=== PATIENT | male | born 1935 | race Caucasian/White ===

== ENCOUNTER 2016-06-28 00:48 | Emergency (ER) | payer MEDICARE ==
[2016-06-28 01:03] VITALS: RESP 16
[2016-06-28 01:59] VITALS: BP 158/69; PULSE 60; TEMP 97.8; O2SAT 98
--- NOTE | 2016-06-28 02:06 | C.PDOC ---
History Of Present Illness <Ruth Abebe - Last Filed: 06/28/16 06:09> <Adela Ventura - Last Filed: 07/15/16 09:30> 80 year old patient, with a past medical history of hypertension, presents to the ED complaining of feeling warm and flushed due to a possible high blood pressure. Patient check his blood pressure with an at-home monitor that reported a high reading. Patient was concerned and wanted further evaluation. Patient denies headache, shortness of breath, chest pain, palpitations, numbness , weakness, nausea, or vomiting. Patient feels better upon arrival at the ED. He came with a family friend. (Ruth Abebe) History Per: Patient History/Exam Limitations: no limitations Onset/Duration Of Symptoms: Mins (just prior to arrival) Current Symptoms Are (Timing): Still Present Associated Symptoms: Other Severity: None Pain Scale Rating Of: 0 <Ruth Abebe - Last Filed: 06/28/16 06:09> <Adela Ventura - Last Filed: 07/15/16 09:30> Time Seen by Provider: 06/28/16 01:40 Chief Complaint (Nursing): High Blood Pressure Past Medical History Reviewed: Historical Data, Nursing Documentation, Vital Signs - Medical History PMH: HTN Family History: States: Unknown Family Hx - Social History Hx Alcohol Use: No Hx Substance Use: No - Immunization History Hx Tetanus Toxoid Vaccination: No Hx Influenza Vaccination: No Hx Pneumococcal Vaccination: No <Ruth Abebe - Last Filed: 06/28/16 06:09> Review Of Systems Except As Marked, All Systems Reviewed And Found Negative. Cardiovascular: Negative for: Chest Pain, Palpitations Respiratory: Negative for: Shortness of Breath Gastrointestinal: Negative for: Nausea, Vomiting Neurological: Negative for: Weakness, Numbness, Headache <Ruth Abebe - Last Filed: 06/28/16 06:09> Physical Exam - Physical Exam Appears: Well, Non-toxic, No Acute Distress Skin: Warm, Dry Head: Atraumatic, Normacephalic Neck: Normal ROM, Supple Chest: Symmetrical Cardiovascular: Rhythm Regular Respiratory: No Accessory Muscle Use Back: Normal Inspection, No CVA Tenderness Extremity: Normal ROM Neurological/Psych: Oriented x3 Gait: Steady <Ruth Abebe - Last Filed: 06/28/16 06:09> ED Course And Treatment O2 Sat by Pulse Oximetry: 98 (RA) Pulse Ox Interpretation: Normal Progress Note: Patient is asymptomatic and appears well. Patient is resting comfortably, and is in no acute distress. Patient was instructed to follow up with PMD in 1-2 days for further evaluation. Return if symptoms worsen. <Ruth Abebe - Last Filed: 06/28/16 06:09> Disposition Counseled Patient/Family Regarding: Diagnosis, Need For Followup - Disposition Disposition Time: 02:04 <Ruth Abebe - Last Filed: 06/28/16 06:09> <Adela Ventura - Last Filed: 07/15/16 09:30> - Disposition Referrals: Angelo Voss MD [Staff Provider] - Disposition: HOME/ ROUTINE Condition: STABLE Additional Instructions: Please follow up with PMD Take meds as directed Return to ER if worse Forms: Gen Discharge Inst Citizen Of [place] Print Language: CROATIAN - Clinical Impression Clinical Impression: Encounter for medical assessment - PA / CLINICAL MARKETING MANAGER / Resident Statement / has reviewed & agrees with the documentation as recorded. - Scribe Statement The provider has reviewed the documentation as recorded by the Scribe <Ruth Abebe - Last Filed: 06/28/16 06:09> - PA / CLINICAL MARKETING MANAGER / Resident Statement YVES has reviewed & agrees with the documentation as recorded. <Adela Ventura - Last Filed: 07/15/16 09:30> - Scribe Statement Alina Gmable All medical record entries made by the Scribe were at my direction and personally dictated by me. I have reviewed the chart and agree that the record accurately reflects my personal performance of the history, physical exam, medical decision making, and the department course for this patient. I have also personally directed, reviewed, and agree with the discharge instructions and disposition. (Ruth Abebe)
== END 2016-06-28 02:13 | disposition home or self-care (01) ==
LOC: C.ER 00:48
DX: Z00.00 Encounter for general adult medical examination without abnormal findings (principal)

== ENCOUNTER 2017-04-07 04:51 | Observation (INO) | payer MEDICARE ==
[2017-04-07 05:51] LABS: BASO % 0.5 % (0.0-2.0); EOS # 0.1 K/uL (0.0-0.7); EOS % 1.6 % (0.0-4.0); HEMOGLOBIN 14.7 g/dL (12.0-18.0); LYMPH # 1.6 K/uL (1.0-4.3); LYMPH % 24.4 % (20.0-40.0); MEAN CELL VOLUME 83.3 fL (80.0-94.0); MEAN CORPUSCULAR HEMOGLOBIN 28.7 pg (27.0-31.0); MEAN CORPUSCULAR HGB CONC 34.4 g/dL (33.0-37.0); MEAN PLATELET VOLUME 8.6 fL (7.2-11.7); MONO # 0.5 K/uL (0.0-0.8); MONO % 8.2 % (0.0-10.0); NEUT # 4.2 K/uL (1.8-7.0); NEUT % 65.3 % (50.0-75.0); RBC 5.14 Mil/uL (4.40-5.90); RED CELL DISTRIBUTION WIDTH 14.6 % (11.5-14.5); WHITE BLOOD COUNT 6.5 K/uL (4.8-10.8)
[2017-04-07 06:12] LABS: BLOOD UREA NITROGEN 18 mg/dL (9-20); GFR AFRICAN-AMERICAN > 60; GFR NON-AFRICAN AMERICAN > 60
[2017-04-07 06:13] LABS: ALB/GLOB RATIO 1.3 (1.0-2.1); ALBUMIN 4.1 g/dL (3.5-5.0); ALT/SGPT 40 U/L (21-72); AST/SGOT 29 U/L (17-59); CALCIUM 8.7 mg/dl (8.6-10.4)
--- NOTE | 2017-04-07 06:19 | C.PDOC ---
History Of Present Illness <Mikael Moreno - Last Filed: 04/07/17 06:56> <Rubi Wright - Last Filed: 04/07/17 11:10> 81 year old male with Hx HTN comes in the ED c/o high blood pressure and palpitations. Patient reports he checked his BP at home and it was 200 systolic , improving in the ED. Patient denies any pain. (TiffanieMikael) History Per: Patient History/Exam Limitations: no limitations Onset/Duration Of Symptoms: Hrs Current Symptoms Are (Timing): Still Present Associated Symptoms: Chest Pain Quality Of Symptoms: Rapid Heart Rate Exacerbating Factor(s): Pos: None Recent travel outside of the [place]: No Additional History Per: Patient <Mikael Moreno - Last Filed: 04/07/17 06:56> <Rubi Wright - Last Filed: 04/07/17 11:10> Time Seen by Provider: 04/07/17 04:55 Chief Complaint (Nursing): High Blood Pressure Past Medical History Reviewed: Historical Data, Nursing Documentation, Vital Signs - Medical History PMH: HTN Surgical History: No Surg Hx Family History: States: Unknown Family Hx - Social History Hx Alcohol Use: No Hx Substance Use: No - Immunization History Hx Tetanus Toxoid Vaccination: No Hx Influenza Vaccination: No Hx Pneumococcal Vaccination: No <Mikael Moreno - Last Filed: 04/07/17 06:56> Vital Signs: Last Vital Signs Temp 97.7 F 04/07/17 10:24 Pulse 70 04/07/17 10:24 Resp 14 04/07/17 10:24 BP 146/75 04/07/17 10:24 Pulse Ox 99 04/07/17 10:24 Review Of Systems Except As Marked, All Systems Reviewed And Found Negative. Cardiovascular: Positive for: Chest Pain, Palpitations <Mikael Moreno - Last Filed: 04/07/17 06:56> Physical Exam - Physical Exam Appears: Non-toxic, Other (mild anxious) Skin: Normal Color, Warm, Dry Head: Atraumatic, Normacephalic Eye(s): bilateral: Normal Inspection Nose: No Discharge, No Deformity Oral Mucosa: Moist Neck: Normal ROM, Supple Chest: Symmetrical Cardiovascular: Rhythm Regular, No Murmur Respiratory: Normal Breath Sounds, No Rales, No Rhonchi, No Wheezing Gastrointestinal/Abdominal: Soft, No Tenderness, No Guarding, No Rebound Extremity: Normal ROM, No Pedal Edema, No Calf Tenderness, No Deformity, No Swelling Neurological/Psych: Oriented x3, Normal Speech, Normal Cognition Gait: Steady <Rosa Morenoil - Last Filed: 04/07/17 06:56> ED Course And Treatment - Laboratory Results Result Diagrams: 04/07/17 05:48 04/07/17 05:48 O2 Sat by Pulse Oximetry: 100 (On RA) Pulse Ox Interpretation: Normal <Mikael Moreno - Last Filed: 04/07/17 06:56> - Laboratory Results Result Diagrams: 04/07/17 05:48 04/07/17 05:48 Interpretation Of Abnormal: INCR VALUE COMPARED TO INITIAL TROPONIN Reevaluation Time: 11:07 Reassessment Condition: Improved (NO RECUR PALP. CP. ADVISED NEED FOR ADMISSION DUE TO 2ND TROP, PT AGREES W PLAN) - Physician Consult Information Time Consulting Physician Contacted: 11:07 Physician Contacted: Angelo Voss Outcome Of Conversation: AWARE OF ER FINDINGS WILL AMDIT <Rubi Wright - Last Filed: 04/07/17 11:10> Medical Decision Making <SamuelRosa garciail - Last Filed: 04/07/17 06:56> <KyleRubi - Last Filed: 04/07/17 11:10> Medical Decision Making: Impression : chest pain, palpitations - r/o metabolic, cardiac etology Plan: * EKG * Labs scarbosa criteria neg, discussed with dr orta - not code heart candidate as pt cp free. discussed with dr voss. no previous ekg avail. requests outpt f/u on monday. (Mikael Moreno) Disposition <Mikael Moreno - Last Filed: 04/07/17 06:56> Counseled Patient/Family Regarding: Studies Performed, Diagnosis, Need For Followup - Disposition Disposition Time: 11:08 <KyleRubi - Last Filed: 04/07/17 11:10> - Disposition Disposition: HOSPITALIZED Condition: STABLE Forms: [facility] (Latvian) - Clinical Impression Clinical Impression: Palpitation, Elevated troponin - Scribe Statement The provider has reviewed the documentation as recorded by the Scribe <Mikael Moreno - Last Filed: 04/07/17 06:56> <Rubi Wright - Last Filed: 04/07/17 11:10> - Scribe Statement Aguilar Tomas All medical record entries made by the Scribe were at my direction and personally dictated by me. I have reviewed the chart and agree that the record accurately reflects my personal performance of the history, physical exam, medical decision making, and the department course for this patient. I have also personally directed, reviewed, and agree with the discharge instructions and disposition. (Mikael Moreno) Decision To Admit <Mikael Moreno - Last Filed: 04/07/17 06:56> - Pt Status Changed To: Hospital Disposition Of: Observation - . Bed Request Type: Telemetry Admitting Physician: Angelo Voss <Rubi Wright - Last Filed: 04/07/17 11:10> - . Patient Diagnosis: Palpitation, Elevated troponin
[2017-04-07 06:27] LABS: PROTHROMBIN TIME 11.4 SECONDS (9.7-12.2)
--- NOTE | 2017-04-07 13:12 | CP.PCM.HP ---
History of Present Illness - History of Present Illness History of Present Illness: cc: palpitations HPI: Mr. Warren is an 81-year-old male, , who presented to the ER meaning of palpitations. Past medical history consists of hyperlipidemia and hypertension. He did recount to me that when he was on vacation at his home country a [place] or two ago he was hospitalized when he became very upset at the treatment of his brother who is disabled. He did not know why he was hospitalized but was told that he was "out of it " for at least two days. Patient did not bring any records from this hospitalization abroad. I'm admitting him today under observation because of the upward trend of his troponins which, though not indicative of ischemia at the moment may be a harbinger of things to come. Present on Admission - Present on Admission Any Indicators Present on Admission: No History of DVT/PE: No History of Uncontrolled Diabetes: No Urinary Catheter: No Decubitus Ulcer Present: No Decubitus Ulcer Location: none Review of Systems - Review of Systems Systems not reviewed;Unavailable: Other (palpitations, high blood pressure on arrival) Past Patient History - Infectious Disease Hx of Infectious Diseases: None - Past Medical History & Family History Past Medical History?: Yes Past Family History: Reviewed and not pertinent - Past Social History Smoking Status: Never Smoked Chewing Tobacco Use: No Cigar Use: No - CARDIAC Hx Hypertension: Yes - PSYCHIATRIC Hx Substance Use: No - SURGICAL HISTORY Hx Surgeries: No - ANESTHESIA Hx Anesthesia: No Meds Allergies/Adverse Reactions: Allergies Allergy/AdvReac Type Severity Reaction Status Date / Time No Known Allergies Allergy Verified 06/28/16 00:57 Physical Exam - Constitutional Appears: No Acute Distress - Head Exam Head Exam: NORMAL INSPECTION - Eye Exam Eye Exam: Normal appearance Pupil Exam: NORMAL ACCOMODATION - ENT Exam ENT Exam: Mucous Membranes Moist, Normal Exam - Neck Exam Neck exam: Positive for: Normal Inspection - Respiratory Exam Respiratory Exam: Clear to Auscultation Bilateral, NORMAL BREATHING PATTERN - Cardiovascular Exam Cardiovascular Exam: REGULAR RHYTHM - GI/Abdominal Exam GI & Abdominal Exam: Normal Bowel Sounds, Soft - Rectal Exam Rectal Exam: Deferred - Extremities Exam Extremities exam: Positive for: normal inspection - Back Exam Back exam: NORMAL INSPECTION - Neurological Exam Neurological exam: Alert, CN II-XII Intact, Normal Gait, Oriented x3, Reflexes Normal - Psychiatric Exam Psychiatric exam: Normal Affect, Normal Mood Results - Vital Signs Recent Vital Signs: Last Vital Signs Temp 97.8 F 04/07/17 12:37 Pulse 76 04/07/17 12:37 Resp 16 04/07/17 12:37 BP 160/72 H 04/07/17 12:37 Pulse Ox 99 04/07/17 12:37 - Labs Result Diagrams: 04/07/17 05:48 04/07/17 05:48 Labs: Laboratory Results - last 24 hr 04/07/17 04/07/17 04/07/17 05:48 05:48 05:48 WBC 6.5 RBC 5.14 Hgb 14.7 Hct 42.8 MCV 83.3 MCH 28.7 MCHC 34.4 RDW 14.6 H Plt Count 167 MPV 8.6 Neut % (Auto) 65.3 Lymph % (Auto) 24.4 [place] % (Auto) 8.2 Eos % (Auto) 1.6 Baso % (Auto) 0.5 Neut # 4.2 Lymph # 1.6 [place] # 0.5 Eos # 0.1 Baso # 0.0 PT 11.4 INR 1.0 APTT 35 H Sodium 133 Potassium 3.8 Chloride 98 Carbon Dioxide 26 Anion Gap 13 BUN 18 Creatinine 0.9 Est GFR ( Amer) > 60 Est GFR (Non-Af Amer) > 60 Random Glucose 107 Calcium 8.7 Total Bilirubin 0.8 AST 29 ALT 40 Alkaline Phosphatase 60 Troponin I 0.0170 Total Protein 7.2 Albumin 4.1 Globulin 3.1 Albumin/Globulin Ratio 1.3 04/07/17 09:24 WBC RBC Hgb Hct MCV MCH MCHC RDW Plt Count MPV Neut % (Auto) Lymph % (Auto) [place] % (Auto) Eos % (Auto) Baso % (Auto) Neut # Lymph # [place] # Eos # Baso # PT INR APTT Sodium Potassium Chloride Carbon Dioxide Anion Gap BUN Creatinine Est GFR ( Amer) Est GFR (Non-Af Amer) Random Glucose Calcium Total Bilirubin AST ALT Alkaline Phosphatase Troponin I 0.0600 Total Protein Albumin Globulin Albumin/Globulin Ratio - EKG Data EKG Interpreted by: ER Physician (LEONOR prob old, chest pain free) EKG shows normal: Sinus rhythm Rate: Normal Assessment & Plan (1) Elevated troponin Assessment and Plan: trended upwards but did not reach critical levels indicating acute IL Status: Acute (2) Palpitation Assessment and Plan: prob 2ndry to elevated BP. will schedule nuclear stress test outpatient Status: Acute (3) Hypertension Assessment and Plan: controlled with change in BP meds to metoprolol 50 mg q12 Status: Acute
[2017-04-07 16:44] VITALS: BP 131/72; PULSE 65; RESP 20; TEMP 97.3; O2SAT 98
[2017-04-08] MEDS ORDERED: Multiple Vitamins Tab PO SCH (10:00)
--- NOTE | 2017-04-08 23:45 | CARD ---
APPROVED REPORT EKG Measurement Heart [id number] <Conclusion> Normal sinus rhythm Left axis deviation Left bundle branch block Abnormal ECG
--- NOTE | 2017-04-09 10:57 | CARD ---
APPROVED REPORT EXAM: Two-dimensional and M-mode echocardiogram with Doppler and color Doppler. Other Information Quality : GoodRhythm : INDICATION Palpitations ACUTE CORONARY SYNDROME, HIGH TROPONIN RISK FACTORS Hypertension 2D DIMENSIONS IVSd1.7 (0.7-1.1cm)LVDd3.3 (3.9-5.9cm) PWd0.9 (0.7-1.1cm)LVDs1.6 (2.5-4.0cm) FS (%) 51.7 %LVEF (%)84.0 (>50%) M-Mode DIMENSIONS Left Atrium (MM)2.53 (2.5-4.0cm)Aortic Root3.24 (2.2-3.7cm) Aortic Cusp Exc.2.07 (1.5-2.0cm) Mitral Valve MV E Pikdsier29.1cm/sMV A Qjybxera560.1cm/sE/A ratio0.5 TDI E/Lateral E'0.0E/Medial E'0.0 Tricuspid Valve TR Peak [id number]/sTR Peak Gr.[id number] LEFT VENTRICLE The left ventricle is normal size. There is normal left ventricular wall thickness. The Ejection Fraction is 55-60%. abnormal septal motion,probably from bbb. Transmitral Doppler flow pattern is Grade I-abnormal relaxation pattern. The left atrial pressure is mildly elevated. RIGHT VENTRICLE The right ventricle is normal size. The right ventricular systolic function is normal. ATRIA The left atrium size is normal. The right atrium size is normal. The interatrial septum is intact with no evidence for an atrial septal defect. AORTIC VALVE The aortic valve is normal in structure. No aortic regurgitation is present. MITRAL VALVE The mitral valve is normal in structure. There is no mitral valve regurgitation noted. TRICUSPID VALVE The tricuspid valve is normal in structure. There is mild tricuspid regurgitation. Right ventricular systolic pressure is estimated at 40 mmHg. There is mild pulmonary hypertension. PULMONIC VALVE The pulmonary valve is normal in structure. GREAT VESSELS The aortic root is normal in size. PERICARDIAL EFFUSION There is no pericardial effusion. <Conclusion> The left ventricle is normal size. The Ejection Fraction is 55-60%. abnormal septal motion,probably from bbb. Transmitral Doppler flow pattern is Grade I-abnormal relaxation pattern. The left atrial pressure is mildly elevated. There is mild tricuspid regurgitation. Right ventricular systolic pressure is estimated at 40 mmHg. There is mild pulmonary hypertension.
== END 2017-04-07 19:40 | disposition home or self-care (01) ==
LOC: C.ER 04:51 → C.9E 11:08 → C.6T 12:26
PROVIDERS: ADMIT Family Medicine; ATTEND Family Medicine
DX: R00.2 Palpitations (principal); R74.8 Abnormal levels of other serum enzymes; I10 Essential (primary) hypertension; Z79.82 Long term (current) use of aspirin; Z79.899 Other long term (current) drug therapy; E78.5 Hyperlipidemia, unspecified
CPT/HCPCS: 36415; 80053; 84484; 85025; 85610; 85730; 93005; 93306; 96372; 99285; G0378; J1644